=== PATIENT | female | born 1935 ===

== ENCOUNTER → 2016-09-26 | Day surgery (SDC) | payer OTHER ==
[~2016-09-26] VITALS: Ht 152.4 cm; Wt 67.1 kg
[2016-09-26] VITALS (8 sets, daily range): BP systolic 114–136; BP diastolic 46–75
[~2016-09-26] MED LIST: BSS 15ml BTL ONE; BSS 500ml btl ONE; CRESTOR10 M2 ORAL; Dexamethasone 4mg/ml vial ONE; EPINEPHrine 1mg/1ml Amp ONE; LR 1000ml ONE; Lidocaine 1% MPF 10mg/ml 5ml ONE; Midazolam 2mg/2ml Inj ONE; NS Irrig 1000ml ONE; Povidone-Iodine 5% opth solution ONE; Sodium Hyaluronate 14 mg/ml 0.85ml ONE; Sterile Water Irrig 1000ml IRRIG ONE
--- NOTE | 2016-09-26 07:38 | Pre-Procedure Note/Attestation ---
Pre-Procedure Note/Attestation Complete Prior to Procedure Planned Procedure: left Procedure Narrative: cataract extraction with implant left eye Indications for Procedure Pre-Operative Diagnosis: cataract left eye Attestation I attest that I discussed the nature of the procedure; its benefits; risks and complications; and alternatives (and the risks and benefits of such alternatives ), prior to the procedure, with the patient (or the patient's legal electroplating sales representative). I attest that, if there was a reasonable possibility of needing a blood transfusion, the patient (or the patient's legal electroplating sales representative) was given the [facility] standardized written summary, pursuant to the Thaddeus Tanner Blood Safety Act ([place] Health and Safety Code # 1645, as amended). I attest that I re-evaluated the patient just prior to the surgery and that there has been no change in the patient's H&P, except as documented below: NGHIA PIKE Sep 26, 2016 07:38
[2016-09-26] MEDS: Akten 3.5% 1ml Btl LEFT EYE SCH ×3 (08:17→08:41)
[2016-09-26] MEDS: Diclofenac Sod 0.1% Op Soln LEFT EYE SCH ×3 (08:17→08:41)
[2016-09-26] MEDS: Tobradex Opth Susp 2.5ml LEFT EYE SCH ×3 (08:18→08:41)
[2016-09-26] MEDS: Phenylephrine 2.5% Op Soln LEFT EYE SCH ×3 (08:18→08:41)
[2016-09-26] MEDS: Tropicamide 1% Opth Soln LEFT EYE SCH ×3 (08:18→08:41)
[2016-09-26] MEDS: Gatifloxacin Opth Solution 0.5% LEFT EYE SCH ×3 (08:19→08:42)
--- NOTE | 2016-09-26 10:09 | Brief Operative Note ---
Immediate Post Operative Note Operative Note Pre-op Diagnosis: cataract left eye Procedure: phacoemulsification of cataract with implant left eye Post-op Diagnosis: same as pre-op Surgeon: nghia real Regulatory Affairs Analyst: none Anesthesiologist: star zazueta crna Anesthesia: MAC Specimen: none Complications: none Condition: stable Estimated Blood Loss: none Drains: none Implant(s) used?: Yes NGHIA REAL Sep 26, 2016 10:09
--- NOTE | 2016-09-26 10:27 | Immediate Post-Op Evaluation ---
Immediate Post-Op Evalulation Immediate Post-Op Evalulation Procedure: cataract extraction left eye with IOL Date of Evaluation: Sep 26, 2016 Time of Evaluation: 10:05 IV Fluids: 300 Blood Pressure Systolic: 124 Blood Pressure Diastolic: 62 Pulse Rate: 83 Respiratory Rate: 14 O2 Sat by Pulse Oximetry: 98 Temperature (Fahrenheit): 97.0 Nausea: No Vomiting: No Complications none Patient Status: awake, reacts, patent Hydration Status: adequate Drug: none STEPHENRISARA BATRES CRNA Sep 26, 2016 10:27
--- NOTE | 2016-09-26 10:30 | Anethesia Preoperative Eval ---
Anesthesia Pre-op PMH/ROS General Date of Evaluation: Sep 26, 2016 Time of Evaluation: 09:35 Anesthesiologist: tammie ASA Score: ASA 2 Mallampati Score Class I : Soft palate, uvula, fauces, pillars visible Class II: Soft palate, uvula, fauces visible Class III: Soft palate, base of uvula visible Class IV: Only hard plate visible Mallampati Classification: Class II Surgeon: farhan Diagnosis: cataract Surgical Procedure: cataract extraction left eye Anesthesia History: none Family History: no anesthesia problems Allergies: Coded Allergies: ATORVASTATIN (Verified Allergy, Mild, 09/26/16) itching Medications: see eMAR Past Medical History Cardiovascular: Denies: CAD, HTN, [place], arrhythmia, other, valve dz Pulmonary: Denies: COPD, CIRILO, asthma, other Gastrointestinal/Genitourinary: Denies: CRI, ESRD, GERD, other Neurologic/Psychiatric: Reports: CVA Endocrine: Denies: DM, hypothyroidism, other, steroids HEENT: Reports: cataract (L) Hematology/Immune: Denies: DVT, anemia, bleeding disorder, other Musculoskeletal/Integumentary: Reports: DJD, Denies: DDD, OA, RA, edema, other PSxH Narrative: appendectomy Anesthesia Pre-op Phys. Exam Physician Exam Last Vital Signs Date Time Temp Pulse Resp B/P Pulse Ox O2 Delivery O2 Flow Rate FiO2 09/26/16 10:13 98 15 115/55 98 Room Air 09/26/16 10:03 97.0 Constitutional: NAD Neurologic: CN 2-12 intact Cardiovascular: RRR Respiratory: CTA Gastrointestinal: S/NT/ND Airway Exam Mallampati Classification 2 Mallampati Score: Class II MO: full ROM: full Dentures: no lower, no upper Anesthesia Pre-op A/P Studies Pre-op Studies: EKG - SR Risk Assessment & Plan Plan: mac Status Change Before Surgery: No Pre-Antibiotics Drug: none SARA MORTENSEN CRNA Sep 26, 2016 10:30
--- NOTE | 2016-09-26 15:59 | Operative Note - Dictated ---
DATE OF OPERATION: 09/26/2016 PREOPERATIVE DIAGNOSIS: Cataract, left eye. POSTOPERATIVE DIAGNOSIS: Cataract, left eye. PROCEDURE: Phacoemulsification of cataract, left eye, with placement of posterior intraocular lens. SURGEON: Chester Marinelli [place]. [place] [place] BUILDING SERVICES COORDINATOR: None. ANESTHESIA: MAC/topical. ANESTHESIOLOGIST: Cheryl Li C.R.N.A. INDICATION FOR PROCEDURE: Poor vision, left eye. DESCRIPTION OF FINDINGS: Dense nuclear sclerotic cataract, left eye, with pseudoexfoliation. DESCRIPTION OF PROCEDURE: The patient received a topical anesthetic block consisting of 3.5% Akten eye drops. The eye was then prepped and draped in the usual manner. A lid speculum was placed and an operating Zeiss microscope was positioned. A temporal corneal groove was made with the crescent blade. A SuperSharp blade made a stab incision after the 6 o'clock position. A 0.1 mL of 1% nonpreserved intracameral lidocaine was injected. Healon was instilled into the anterior chamber and a 2.5/2.8 mm trapezoidal afia blade was used to complete the temporal corneal wound. A cystotome was used to create an anterior capsular flap. Utrata forceps were used to complete the capsulorrhexis. BSS on a cannula was used to hydrodissect the nucleus. The lens nucleus phacoemulsified in a phaco-fracture technique. Remaining cortical material was removed with the I/A and the posterior capsule was polished with the I/A on Cap vac. Healon was reinstilled into the capsular bag and anterior chamber, and an Joseph foldable one-piece posterior intraocular lens, model ZCB00, power 26.5 diopter, serial #[id number] was placed in the injector. The lens was put in the capsular bag. The I/A tip was used to remove the Healon and position the lens. The wound edge was hydrated with BSS and a blunt-tipped cannula. The wound was checked and found to be watertight. The lid speculum was removed, and a drop of TobraDex and Zymaxid was placed. A clear plastic shield was taped over the eye. The patient tolerated the procedure well and left the operating room in good position. Chester Marinelli M.D. ([facility]) DR: BALTAZAR JOB#: [id number] CC: Joao Corrigan M.D. MTDD
== END | disposition home or self-care (01) ==
LOC: SUR 07:11
DX: H25.12 Age-related nuclear cataract, left eye (principal); H26.8 Other specified cataract; E78.2 Mixed hyperlipidemia; E55.9 Vitamin D deficiency, unspecified; E72.19 Other disorders of sulfur-bearing amino-acid metabolism; R42 Dizziness and giddiness; G30.9 Alzheimer's disease, unspecified; F02.81 Dementia in other diseases classified elsewhere, unspecified severity, with behavioral disturbance; M19.90 Unspecified osteoarthritis, unspecified site; M17.12 Unilateral primary osteoarthritis, left knee; Z88.8 Allergy status to other drugs, medicaments and biological substances; Z79.82 Long term (current) use of aspirin; Z86.73 Personal history of transient ischemic attack (TIA), and cerebral infarction without residual deficits; Z86.010 Personal history of colon polyps
CPT/HCPCS: 66984; J0171; J1100; J2250; J7120; V2632; 94003; 94150

== ENCOUNTER 2016-12-05 06:35 | Day surgery (SDC) | payer OTHER ==
[~2016-12-05] VITALS: Ht 157.5 cm; Wt 63.5 kg
[2016-12-05] VITALS (8 sets, daily range): BP systolic 124–150; BP diastolic 60–71
[~2016-12-05 06:35] MED LIST changes: +ASPIR 8181 MG ORAL; -BSS 15ml BTL ONE; -BSS 500ml btl ONE; +CO Q-1010 MG PO; +DHA100 MG PO; -Dexamethasone 4mg/ml vial ONE; -EPINEPHrine 1mg/1ml Amp ONE; -LR 1000ml ONE; -Lidocaine 1% MPF 10mg/ml 5ml ONE; -Midazolam 2mg/2ml Inj ONE; -NS Irrig 1000ml ONE; -Povidone-Iodine 5% opth solution ONE; -Sodium Hyaluronate 14 mg/ml 0.85ml ONE; -Sterile Water Irrig 1000ml IRRIG ONE; +VITAMIN B122500 MCG PO
[2016-12-05] MEDS ORDERED: Gatifloxacin Opth Solution 0.5% ONE (07:15)
[2016-12-05] MEDS ORDERED: Tobradex Opth Susp 2.5ml ONE (07:15)
[2016-12-05] MEDS ORDERED: Akten 3.5% 1ml Btl ONE (07:15)
[2016-12-05] MEDS ORDERED: Tropicamide 1% Opth Soln ONE (07:15)
[2016-12-05] MEDS ORDERED: Diclofenac Sod 0.1% Op Soln ONE (07:15)
[2016-12-05] MEDS ORDERED: Phenylephrine 2.5% Op Soln ONE (07:15)
[2016-12-05] MEDS: Phenylephrine 2.5% Op Soln RIGHT EYE SCH ×3 (07:26→07:44)
[2016-12-05] MEDS: Tobradex Opth Susp 2.5ml RIGHT EYE SCH ×3 (07:26→07:44)
[2016-12-05] MEDS: Tropicamide 1% Opth Soln RIGHT EYE SCH ×3 (07:26→07:44)
[2016-12-05] MEDS: Gatifloxacin Opth Solution 0.5% RIGHT EYE SCH ×3 (07:26→07:44)
[2016-12-05] MEDS: Diclofenac Sod 0.1% Op Soln RIGHT EYE SCH ×3 (07:26→07:44)
[2016-12-05] MEDS: Akten 3.5% 1ml Btl RIGHT EYE SCH ×3 (07:27→07:44)
--- NOTE | 2016-12-05 07:39 | Pre-Procedure Note/Attestation ---
Pre-Procedure Note/Attestation Complete Prior to Procedure Planned Procedure: right Procedure Narrative: cataract extraction with implant right eye Indications for Procedure Pre-Operative Diagnosis: cataract right eye Attestation I attest that I discussed the nature of the procedure; its benefits; risks and complications; and alternatives (and the risks and benefits of such alternatives ), prior to the procedure, with the patient (or the patient's legal textile designs sales representative). I attest that, if there was a reasonable possibility of needing a blood transfusion, the patient (or the patient's legal textile designs sales representative) was given the [facility] standardized written summary, pursuant to the Thaddeus Thurston Blood Safety Act ([place] Health and Safety Code # 1645, as amended). I attest that I re-evaluated the patient just prior to the surgery and that there has been no change in the patient's H&P, except as documented below: NGHIA PIKE December 05, 2016 07:39
[2016-12-05] MEDS ORDERED: LR 1000ml 1,000 ML IVLG SCH (07:54)
--- NOTE | 2016-12-05 07:54 | Anethesia Preoperative Eval ---
Anesthesia Pre-op PMH/ROS General Date of Evaluation: December 05, 2016 Anesthesiologist: Mert ASA Score: ASA 3 Mallampati Score Class I : Soft palate, uvula, fauces, pillars visible Class II: Soft palate, uvula, fauces visible Class III: Soft palate, base of uvula visible Class IV: Only hard plate visible Mallampati Classification: Class II Surgeon: Yves Diagnosis: Right cataract Surgical Procedure: Right cataract extraction with IOL Anesthesia History: none Family History: no anesthesia problems Allergies: Coded Allergies: ATORVASTATIN (Verified Allergy, Mild, ITCHING, 09/26/16) itching Medications: see eMAR Past Medical History Cardiovascular: Reports: HTN, other - HLD, Denies: CAD, [place], arrhythmia, valve dz Pulmonary: Denies: COPD, CIRILO, asthma, other Gastrointestinal/Genitourinary: Reports: GERD, Denies: CRI, ESRD, other Neurologic/Psychiatric: Reports: CVA, other - vertigo, Denies: TIA, dementia, depression/anxiety Endocrine: Denies: DM, hypothyroidism, other, steroids HEENT: Denies: [place] (L), [place] (R), cataract (L), cataract (R), glaucoma, other Hematology/Immune: Reports: DVT, Denies: anemia, bleeding disorder, other Musculoskeletal/Integumentary: Reports: OA, Denies: DDD, DJD, RA, edema, other PSxH Narrative: T&A, lap durga Anesthesia Pre-op Phys. Exam Physician Exam Last Vital Signs Date Time Temp Pulse Resp B/P Pulse Ox O2 Delivery O2 Flow Rate FiO2 12/05/16 07:30 97.5 69 16 124/64 97 Room Air Constitutional: NAD Cardiovascular: RRR Respiratory: CTA Airway Exam Mallampati Score: Class II MO: full ROM: limited Anesthesia Pre-op A/P Labs see chart Studies Pre-op Studies: EKG Risk Assessment & Plan Assessment: ASA III Plan: MAC Status Change Before Surgery: No Pre-Antibiotics Drug: N/A HERBIE MANZO M.D. December 05, 2016 07:54
[2016-12-05] MEDS ORDERED: DiphenhydrAMINE 50mg/ml Inj IVP PRN (08:00)
[2016-12-05] MEDS ORDERED: fentaNYL 100 mcg/2 mL IV ONE (09:45)
[2016-12-05] MEDS ORDERED: Sterile Water Irrig 1000ml IRRIG ONE (09:45)
[2016-12-05] MEDS ORDERED: Lidocaine 1% MPF 10mg/ml 5ml ONE ×2 (09:45→10:25)
[2016-12-05] MEDS ORDERED: NS Irrig 1000ml ONE (09:45)
[2016-12-05] MEDS ORDERED: LR 1000ml ONE (09:45)
--- NOTE | 2016-12-05 10:15 | Brief Operative Note ---
Immediate Post Operative Note Operative Note Pre-op Diagnosis: cataract right eye Procedure: phacoemulsification of cataract with implant right eye Post-op Diagnosis: same as pre-op Surgeon: nghia real Reset Merchandiser: none Anesthesiologist: jennie davidson md Anesthesia: MAC Specimen: none Complications: none Condition: stable Estimated Blood Loss: none Drains: none Implant(s) used?: Yes NGHIA REAL December 05, 2016 10:15
--- NOTE | 2016-12-05 10:19 | Immediate Post-Op Evaluation ---
Immediate Post-Op Evalulation Immediate Post-Op Evalulation Procedure: Right cataract extraction with IOL Date of Evaluation: December 05, 2016 Time of Evaluation: 10:19 IV Fluids: 300 Blood Products: 0 Estimated Blood Loss: 0 Urinary Output: 0 Blood Pressure Systolic: 148 Blood Pressure Diastolic: 71 Pulse Rate: 77 Respiratory Rate: 18 O2 Sat by Pulse Oximetry: 99 Temperature (Fahrenheit): 98.6 Pain Score (1-10): 0 Nausea: No Vomiting: No Complications 0 Patient Status: awake, reacts, patent, none Hydration Status: adequate Drug: N/A HERBIE MANZO M.D. December 05, 2016 10:19
[2016-12-05] MEDS ORDERED: Dexamethasone 4mg/ml vial ONE (10:25)
[2016-12-05] MEDS ORDERED: BSS 500ml btl ONE (10:25)
[2016-12-05] MEDS ORDERED: Povidone-Iodine 5% opth solution ONE (10:25)
[2016-12-05] MEDS ORDERED: Sodium Hyaluronate 14 mg/ml 0.85ml ONE (10:26)
[2016-12-05] MEDS ORDERED: EPINEPHrine 1mg/1ml Amp ONE (10:26)
[2016-12-05] MEDS ORDERED: BSS 15ml BTL ONE (10:26)
--- NOTE | 2016-12-05 12:14 | 48 Hour Post Anesthesia Eval ---
Post Anesthesia Evaluation Procedure: Right cataract extraction with IOL Date of Evaluation: December 05, 2016 Time of Evaluation: 11:30 Blood Pressure Systolic: 132 0: 65 Pulse Rate: 71 Respiratory Rate: 18 Temperature (Fahrenheit): 98 O2 Sat by Pulse Oximetry: 98 Airway: patent Nausea: No Vomiting: No Pain Intensity: 0 Hydration Status: adequate Cardiopulmonary Status: at baseline Mental Status/LOC: patient returned to baseline Post-Anesthesia Complications: 0 Follow-up care needed: ready to discharge HERBIE MANZO M.D. December 05, 2016 12:14
--- NOTE | 2016-12-05 12:19 | Operative Note - Dictated ---
DATE OF OPERATION: 12/05/2016 PREOPERATIVE DIAGNOSIS: Cataract, right eye. POSTOPERATIVE DIAGNOSIS: Cataract, right eye. PROCEDURE: Phacoemulsification cataract right eye with placement of posterior chamber intraocular lens. SURGEON: Chester Marinelli M.D. EIGHT ARM OPERATOR: None. ANESTHESIA: MAC/topical. ANESTHESIOLOGIST: Dr. Ayaka Casper. INDICATION FOR PROCEDURE: Poor vision in the right eye. DESCRIPTION OF FINDINGS: Dense nuclear sclerotic cataract, right eye with pseudoexfoliation. DESCRIPTION OF PROCEDURE: The patient received a topical anesthetic block consisting of 3.5% Akten eye drops. The eye was prepped and draped in usual manner. A lid speculum was placed. An operating Zeiss microscope was positioned. An infra-temporal corneal groove was made with the afia blade. A SuperSharp blade made a stab incision at the 12 o'clock position. A 0.1 mL of 1% nonpreserved intracameral lidocaine was injected. Healon was instilled into the anterior chamber and a 2.5/2.8 mm trapezoidal afia blade was used to complete the temporal corneal wound. A cystotome was used to create an anterior capsular flap. Utrata forceps were used to complete the capsulorrhexis. BSS on a cannula was used to hydrodissect the nucleus. The lens nucleus phacoemulsified in a phaco-fracture technique. Remaining cortical material was removed with the I/A and the posterior capsule polished with the I/A on Cap vac. Healon was reinstilled into the capsular bag and anterior chamber, and an Joseph foldable one-piece posterior chamber intraocular lens, model ZCB00,, power 26.0 diopter, serial number #[id number] was placed in the injector. The lens was put in the capsular bag. The I/A tip was used to remove the Healon and position the lens. The wound edge was hydrated with BSS and a blunt-tipped cannula. The wound was checked and found to be watertight. The lid speculum was removed and a drop of TobraDex and Zymaxid was placed. A clear plastic shield was taped over the eye. The patient tolerated the procedure well and left the operating room in good condition. Chester Marinelli M.D. ([facility]) DR: La JOB#: [id number] CC: ELIZABETH
== END 2016-12-05 11:00 | disposition home or self-care (01) ==
LOC: SUR 06:35
DX: H25.11 Age-related nuclear cataract, right eye (principal); H26.8 Other specified cataract; Z96.1 Presence of intraocular lens; I10 Essential (primary) hypertension; E78.5 Hyperlipidemia, unspecified; K21.9 Gastro-esophageal reflux disease without esophagitis; M17.12 Unilateral primary osteoarthritis, left knee; G31.84 Mild cognitive impairment of uncertain or unknown etiology; R42 Dizziness and giddiness; H93.19 Tinnitus, unspecified ear; Z86.69 Personal history of other diseases of the nervous system and sense organs; Z86.718 Personal history of other venous thrombosis and embolism; Z86.73 Personal history of transient ischemic attack (TIA), and cerebral infarction without residual deficits; Z88.8 Allergy status to other drugs, medicaments and biological substances
CPT/HCPCS: 66984; J0171; J1100; J3010; J7120; V2632; 94003; 94150